=== PATIENT | male | born 1960 | race Caucasian/White ===

== ENCOUNTER 2017-10-29 10:50 | Inpatient (IN) | payer OTHER ==
[2017-10-29 10:57] VITALS: TEMP 98.6
[2017-10-29] MEDS ORDERED: HYDR-3516 PO (11:04)
[2017-10-29 11:05] VITALS: BP 176/110; PULSE 99; RESP 18; O2SAT 95
[2017-10-29] MEDS ORDERED: CELE100C PO (11:05)
[2017-10-29] MEDS ORDERED: HYDROmorphone HCL PF 2 MG/ML VIAL IV PUSH ONE (11:15)
[2017-10-29] MEDS ORDERED: ceFAZolin 2 GM PREMIX 50 ML IV ONE (11:15)
[2017-10-29] MEDS ORDERED: TETANUS/DIPHTHERIA TOXOID ADULT 0.5 ML VIAL IM ONE (11:15)
--- NOTE | 2017-10-29 11:24 | PD ---
HPI Chief Complaint: Injury Time Seen by Provider: 10:54 Travel History International Travel<30 days: No Contact w/Intl Traveler<30days: No Traveled to known affect area: No History of Present Illness HPI This is a 62-year-old male who presents to the emergency department having had the Rashad of a trailer fall onto his foot. He has severe pain in his right great toe, constant, throbbing, associated with some numbness in his toe. The patient does not recall when his last tetanus shot was. He takes hydrocodone at home normally for chronic pain. PFSH Past Medical History Medical other: Yes (back pain ) Past Surgical History Other Surgery: Yes (left calf skin graft ) Social History Alcohol Use: Yes (daily ) Tobacco Use: Yes (2 packs a day ) Substance Use: No Allergies-Medications (Allergen,Severity, Reaction): Coded Allergies: No Known Allergies (Unverified , 10/29/17) Reported Meds & Prescriptions Reported Meds & Active Scripts Active Reported Celebrex (Celecoxib) 100 Mg Cap 100 Mg PO DAILY Hydrocodone-Acetaminophen 5-325 mg Tab 1 Tab PO TID PRN Review of Systems Except as stated in HPI: all other systems reviewed are Neg Physical Exam Narrative GENERAL:Well appearing, no acute distress SKIN: 8 cm laceration extending distal to the right great toe on the dorsal surface all the way around the toe to the plantar surface of the foot with exposed tendon. Avulsion of the right foot toenail with underlying bone exposed HEAD: Atraumatic. Normocephalic. EYES: Pupils equal and round. No injection or drainage. ENT: Moist mucous membranes NECK: Trachea midline. CARDIOVASCULAR: Regular rate and rhythm. No murmur appreciated. Poor perfusion of the right great toe. RESPIRATORY: Clear to auscultation. Breath sounds equal bilaterally. GASTROINTESTINAL: Abdomen soft, non-tender, nondistended. MUSCULOSKELETAL: No obvious deformities. NEUROLOGICAL: Awake and alert. No obvious cranial nerve deficits. PSYCHIATRIC: Appropriate mood and affect; insight and judgment normal. Data Data Last Documented VS Vital Signs Date Time Temp Pulse Resp B/P (MAP) Pulse Ox O2 Delivery O2 Flow Rate FiO2 10/29/17 11:05 99 18 176/110 (132) 95 Room Air 10/29/17 10:57 98.6 Orders Orders Complete Blood Count With Diff (10/29/17 11:01) Comprehensive Metabolic Panel (10/29/17 11:01) Prothrombin Time / Inr (Pt) (10/29/17 11:01) Act Partial Throm Time (Ptt) (10/29/17 11:01) ^ Insert Iv (10/29/17 11:01) Hydromorphone Pf Inj (Dilaudid Pf Inj) (10/29/17 11:15) Foot, Complete (Sed1flq) (10/29/17 ) Cefazolin 2 Gm Premix (Ancef 2 Gm Premix (10/29/17 11:15) Tetanus/Diphtheria Tox Adult (Tetanus/Di (10/29/17 11:15) Consult Podiatry (10/29/17 ) Admit Order (Ed Use Only) (10/29/17 11:43) Comprehensive Metabolic Panel (10/30/17 06:00) Free Thyroxine (T4) (10/30/17 06:00) Hemoglobin (Hgb) A1c (10/30/17 06:00) Magnesium (Mg) (10/30/17 06:00) Phosphorus (Po4) (10/30/17 06:00) Thyroid Stimulating Hormone (10/30/17 06:00) Complete Blood Count With Diff (10/30/17 06:00) Admit To Inpatient (10/29/17 ) Code Status (10/29/17 11:49) Vital Signs (Adult) Q4H (10/29/17 11:49) Activity Bed Rest (10/29/17 11:49) Ballast Inspector / Telemetry .CONTINUOUS (10/29/17 11:49) Intake + Output HOLLI.QSHIFT (10/29/17 11:49) Diet Npo (10/29/17 Lunch) Sodium Chlor 0.9% 1000 Ml Inj (Ns 1000 M (10/29/17 11:49) Sodium Chloride 0.9% Flush (Ns Flush) (10/29/17 12:00) Sodium Chloride 0.9% Flush (Ns Flush) (10/29/17 12:00) Acetaminophen (Tylenol) (10/29/17 12:00) Ondansetron Inj (Zofran Inj) (10/29/17 12:00) Metoclopramide Inj (Reglan Inj) (10/29/17 12:00) Resp Oxygen Robert C Titrat 1-4 L (10/29/17 ) Case Management Consult (10/29/17 11:49) Pharmacologic Contraindication (10/29/17 11:49) Mechanical Contraindication (10/29/17 11:49) Acetaminophen (Tylenol) (10/29/17 12:00) Oxycodone-Acetamin 5-325 Mg (Percocet (10/29/17 12:00) Oxycodone-Acetamin 10-325 Mg (Percocet 1 (10/29/17 12:00) Morphine Inj (Morphine Inj) (10/29/17 12:00) Morphine Inj (Morphine Inj) (10/29/17 12:00) Morphine Inj (Morphine Inj) (10/29/17 12:00) Naloxone Inj (Narcan Inj) (10/29/17 12:00) Docusate Sodium-Senna (Shanita-Colace) (10/29/17 21:00) Magnesium Hydroxide Liq (Milk Of Magnesi (10/29/17 12:00) Sennosides (Senokot) (10/29/17 12:00) Bisacodyl Supp (Dulcolax Supp) (10/29/17 12:00) Lactulose Liq (Lactulose Liq) (10/29/17 12:00) Inpatient Certification (10/29/17 ) Nicotine 21 Mg Patch.24 Hr (Habitrol 21 (10/29/17 12:00) Nicotine 21 Mg Patch.24 Hr (Habitrol 21 (10/29/17 12:00) Remove Old Patch (10/30/17 09:00) Acetaminophen 1000 Mg/100 Ml (Ofirmev 10 (10/29/17 12:21) Hydromorphone Pf Inj (Dilaudid Pf Inj) (10/29/17 12:21) Lidocaine 1% Inj (50 Ml) (Xylocaine 1% I (10/29/17 12:24) Vancomycin Inj (Vancomycin Inj) (10/29/17 12:25) Labs Laboratory Tests Test 10/29/17 11:15 White Blood Count 8.6 TH/MM3 Red Blood Count 4.92 MIL/MM3 Hemoglobin 16.0 GM/DL Hematocrit 46.3 % Mean Corpuscular Volume 93.9 FL Mean Corpuscular Hemoglobin 32.5 PG Mean Corpuscular Hemoglobin Concent 34.6 % Red Cell Distribution Width 13.8 % Platelet Count 214 TH/MM3 Mean Platelet Volume 8.3 FL Neutrophils (%) (Auto) 66.3 % Lymphocytes (%) (Auto) 22.9 % Monocytes (%) (Auto) 8.4 % Eosinophils (%) (Auto) 1.8 % Basophils (%) (Auto) 0.6 % Neutrophils # (Auto) 5.7 TH/MM3 Lymphocytes # (Auto) 2.0 TH/MM3 Monocytes # (Auto) 0.7 TH/MM3 Eosinophils # (Auto) 0.2 TH/MM3 Basophils # (Auto) 0.1 TH/MM3 CBC Comment DIFF FINAL Differential Comment Prothrombin Time 10.0 SEC Prothromb Time International Ratio 1.0 RATIO Activated Partial Thromboplast Time 23.6 SEC Blood Urea Nitrogen 18 MG/DL Creatinine 1.39 MG/DL Random Glucose 95 MG/DL Total Protein 7.6 GM/DL Albumin 3.7 GM/DL Calcium Level 9.0 MG/DL Alkaline Phosphatase 75 U/L Aspartate Amino Transf (AST/SGOT) 36 U/L Alanine Aminotransferase (ALT/SGPT) 23 U/L Total Bilirubin 0.6 MG/DL Sodium Level 138 MEQ/L Potassium Level 5.5 MEQ/L Chloride Level 105 MEQ/L Carbon Dioxide Level 24.6 MEQ/L Anion Gap 8 MEQ/L Estimat Glomerular Filtration Rate 52 ML/MIN MDM Medical Decision Making Medical Screen Exam Complete: Yes Emergency Medical Condition: Yes Interpretation(s) Afebrile, mild tachycardia, hypertensive No leukocytosis Hyperkalemia likely in the setting of hemolysis Mild renal insufficiency Last 24 hours Impressions Foot X-Ray 10/29/17 0000 Signed Impressions: CONCLUSION: Severely comminuted fracture distal phalanx great toe with toenail avulsion. Mildly displaced fractures proximal phalanx second toe, distal third metatarsal and medial aspect of first metatarsal head. Differential Diagnosis Laceration, open fracture, crush injury, vascular injury Narrative Course This is a 57-year-old male who presents to the emergency department having had a heavy trailer rashad fall on his foot sustaining a crush injury to the right great toe and forefoot. He has a open fracture of the distal phalanx of the great toe with an avulsion of his toenail as well as displaced fractures to the proximal phalanx of the second toe, distal third metatarsal and medial aspect of the first metatarsal head. There is evidence of exposed tendon in the wound. Patient was given a dose of Ancef, tetanus was updated and I spoke to podiatry regarding the patient. Patient was taken to the operating room for surgical repair. Physician Communication Physician Communication Discussed with Dr. Perrin Diagnosis Primary Impression: Open fracture Admitting Information Admitting Physician Requests: Observation Peggy Yu MD October 29, 2017 11:24
[2017-10-29 11:32] LABS: AUTOMATED NEUTROPHIL # 5.7 TH/MM3 (1.8-7.7); BASOPHIL # 0.1 TH/MM3 (0-0.2); BASOPHIL % 0.6 % (0.0-2.0); EOSINOPHIL # 0.2 TH/MM3 (0-0.4); EOSINOPHIL % 1.8 % (0.0-4.0); HEMATOCRIT 46.3 % (39.0-51.0); LYMPH % 22.9 % (9.0-44.0); MEAN CELL VOLUME 93.9 FL (80.0-100.0); MEAN CORPUSCULAR HEMOGLOBIN 32.5 PG (27.0-34.0); MEAN CORPUSCULAR HGB CONC 34.6 % (32.0-36.0); MEAN PLATELET VOLUME 8.3 FL (7.0-11.0); MONO % 8.4 % (0.0-8.0); MONOCYTE # 0.7 TH/MM3 (0-0.9); NEUT % 66.3 % (16.0-70.0); PLATELET COUNT 214 TH/MM3 (150-450); RED BLOOD COUNT 4.92 MIL/MM3 (4.50-5.90); RED CELL DISTRIBUTION WIDTH 13.8 % (11.6-17.2); WHITE BLOOD COUNT 8.6 TH/MM3 (4.0-11.0)
--- NOTE | 2017-10-29 11:51 | RADRPT ---
EXAM DATE: 10/29/2017 11:38 AM EDT AGE/SEX: 57 years / Male INDICATIONS: Pain, crush injury right foot. Trailer fell on foot CLINICAL DATA: This is the patient's initial encounter. Patient reports that signs and symptoms have been present for 1 day and indicates a pain score of 10/10. MEDICAL/SURGICAL HISTORY: None. None. COMPARISON: No prior [facility] exams available for comparison. FINDINGS: There is a severely comminuted fracture of the distal phalanx of the great toe with probable avulsion of the toenail. Air is present in the soft tissues as well. There is also a mildly displaced oblique ly oriented fracture through the third metatarsal neck. There is also a nondisplaced fracture through the distal portion proximal phalanx of the second toe. Probable small avulsion fracture at the media l aspect of the first metatarsal. CONCLUSION: Severely comminuted fracture distal phalanx great toe with toenail avulsion. Mildly displaced fractures proximal phalanx second toe, distal third metatarsal and medial aspect of first metatarsal head. Electronically signed by: Mayco Anand MD 10/29/2017 11:49 AM EDT
[2017-10-29 11:55] LABS: ALKALINE PHOSPHATASE 75 U/L (45-117); ALT (GPT) 23 U/L (12-78); TOTAL BILIRUBIN ADULT 0.6 MG/DL (0.2-1.0); TOTAL PROTEIN 7.6 GM/DL (6.4-8.2)
[2017-10-29] MEDS ORDERED: NICOTINE 21 MG/24 HR PATCH T-DERMAL SCH (12:00)
[2017-10-29] MEDS ORDERED: LACTATED RINGER'S 1000 ML INJ 1,000 ML IV ONE (12:00)
[2017-10-29] MEDS ORDERED: MORPHINE SULFATE 4 MG/ML INJ IV PUSH PRN ×2 (12:00)
[2017-10-29] MEDS ORDERED: ceFAZolin INJ 1,000 MG VIAL IV ONE (12:00)
[2017-10-29] MEDS ORDERED: NICOTINE 21 MG/24 HR PATCH T-DERMAL ONE (12:00)
[2017-10-29] MEDS ORDERED: ONDANSETRON HCL 4 MG/2 ML VIAL IV PUSH ONE (12:00)
[2017-10-29] MEDS ORDERED: ACETAMINOPHEN 325 MG TAB PO PRN ×2 (12:00)
[2017-10-29] MEDS ORDERED: NALOXONE HCL 0.4 MG/ML AMP IV PUSH PRN (12:00)
[2017-10-29] MEDS ORDERED: PHENYLEPH/NS 1000 MCG/10 ML SYR IV ONE (12:00)
[2017-10-29] MEDS ORDERED: ONDANSETRON ODT 4 MG TAB PO PRN (12:00)
[2017-10-29] MEDS ORDERED: LIDOCAINE HCL 1% PF 5 ML SYRINGE OTHER ONE (12:00)
[2017-10-29] MEDS ORDERED: BISACODYL 10 MG SUPP RECTAL PRN (12:00)
[2017-10-29] MEDS ORDERED: DEXAMETHASONE SOD PHOS 4 MG/ML VIAL IV ONE (12:00)
[2017-10-29] MEDS ORDERED: oxyCODONE/ACETAMINOPHEN 5 MG/325 MG TAB PO PRN (12:00)
[2017-10-29] MEDS ORDERED: SENNOSIDES 8.6 MG TAB PO PRN (12:00)
[2017-10-29] MEDS ORDERED: MAGNESIUM HYDROXIDE SUSP 30 ML CUP PO PRN (12:00)
[2017-10-29] MEDS ORDERED: SODIUM CHLORIDE 0.9% FLUSH 10 ML FLUSH IV FLUSH PRN ×2 (12:00→16:15)
[2017-10-29] MEDS ORDERED: LACTULOSE SYRUP 20 GM/30 ML CUP PO PRN (12:00)
[2017-10-29] MEDS ORDERED: PROPOFOL 200 MG/20 ML AMP IV ONE (12:00)
[2017-10-29] MEDS ORDERED: METOCLOPRAMIDE HCL 10 MG/2 ML VIAL IV PUSH PRN (12:00)
[2017-10-29 12:02] LABS: ALBUMIN 3.7 GM/DL (3.4-5.0); AST (GOT) 36 U/L (15-37); BICARBONATE 24.6 MEQ/L (21.0-32.0); BLOOD UREA NITROGEN 18 MG/DL (7-18); CHLORIDE 105 MEQ/L (98-107); CREATININE 1.39 MG/DL (0.60-1.30); GLOMERULAR FILTRATION RATE 52 ML/MIN (>89); GLUCOSE,RANDOM 95 MG/DL (74-106); SODIUM (NA) 138 MEQ/L (136-145)
[2017-10-29] MEDS ORDERED: HYDROmorphone HCL PF 2 MG/ML VIAL ONE (12:21)
[2017-10-29] MEDS ORDERED: ACETAMINOPHEN 1000 MG/100 ML 100 ML IV ONE (12:21)
[2017-10-29] MEDS ORDERED: LIDOCAINE HCL 1% 50 ML VIAL ONE (12:24)
[2017-10-29] MEDS ORDERED: VANCOMYCIN HCL 1000 MG VIAL ONE (12:25)
[2017-10-29] MEDS ORDERED: BUPIVACAINE HCL PF 0.5% 30 ML VIAL ONE (12:33)
[2017-10-29 12:37] VITALS: BP 170/113
[2017-10-29] MEDS ORDERED: GENTAMICIN SULFATE 80 MG/2 ML VIAL ONE ×2 (12:58→13:46)
--- NOTE | 2017-10-29 13:05 | PD.CONS ---
History of Present Illness Service Foot and ankle surgery/podiatry Consult Requested By Reason for Consult Right foot open fracture with laceration Primary Care Physician No Primary Care Physician Diagnoses: History of Present Illness Foot and ankle surgery/podiatry consulted for this 62-year-old male who presented to the emergency department after having the marisela of his trailer fell on his foot. He reports severe pain to the right great toe as well as some numbness and tingling. Patient received tetanus prophylaxis and ED reports taking hydrocodone for chronic pain. Reports smoking. He is concerned as he has a trip planned to [place] tomorrow and would like to leave for his trip as planned and scheduled. Review of Systems Respiratory: DENIES: Cough, Shortness of breath Cardiovascular: DENIES: Chest pain, Palpitations Psychiatric: DENIES: Anxiety, Confusion Past Family Social History Allergies: Coded Allergies: No Known Allergies (Unverified , 10/29/17) Active Ordered Medications Current Medications Medications (Trade) Dose Ordered Sig/Asaf Route Start Time Stop Time Status Last Admin Sodium Chloride 1,000 ml @ 100 mls/hr Q10H IV 10/29/17 11:49 (NS Flush) 2 ml UNSCH PRN IV FLUSH 10/29/17 12:00 UNV (NS Flush) 2 ml BID IV FLUSH 10/29/17 12:00 UNV (Tylenol) 650 mg Q4H PRN PO 10/29/17 12:00 (Zofran Inj) 4 mg Q6H PRN IVP 10/29/17 12:00 UNV (Reglan Inj) 5 mg Q6H PRN IV PUSH 10/29/17 12:00 UNV (Tylenol) 650 mg Q6H PRN PO 10/29/17 12:00 (Percocet 5-325 Mg) 1 tab Q6H PRN PO 10/29/17 12:00 UNV (Percocet 10-325 Mg) 1 tab Q6H PRN PO 10/29/17 12:00 UNV (Morphine Inj) 2 mg Q3H PRN IV PUSH 10/29/17 12:00 UNV (Morphine Inj) 4 mg Q3H PRN IV PUSH 10/29/17 12:00 UNV (Morphine Inj) 4 mg Q3H PRN IV PUSH 10/29/17 12:00 UNV (Narcan Inj) 0.4 mg UNSCH PRN IV PUSH 10/29/17 12:00 UNV (Shanita-Colace) 1 tab BID PO 10/29/17 21:00 (Milk Of Magnesia Liq) 30 ml Q12H PRN PO 10/29/17 12:00 (Senokot) 17.2 mg Q12H PRN PO 10/29/17 12:00 UNV (Dulcolax Supp) 10 mg DAILY PRN RECTAL 10/29/17 12:00 (Lactulose Liq) 30 ml DAILY PRN PO 10/29/17 12:00 (Habitrol 21 Mg Patch.24 Hr) 1 patch ONCE ONCE T-DERMAL 10/29/17 12:00 10/29/17 12:01 UNV (Habitrol 21 Mg Patch.24 Hr) 1 patch DAILY T-DERMAL 10/29/17 12:00 UNV Miscellaneous Information 1 DAILY T-DERMAL 10/30/17 09:00 UNV Social History Reports smoking Physical Exam Vital Signs Vital Signs Date Time Temp Pulse Resp B/P (MAP) Pulse Ox O2 Delivery O2 Flow Rate FiO2 10/29/17 12:37 95 16 170/113 (132) 96 10/29/17 11:05 99 18 176/110 (132) 95 Room Air 10/29/17 10:57 98.6 Physical Exam GENERAL: This is a well-nourished, well-developed patient, in no apparent distress. SKIN: HEAD: Atraumatic. EYES: Pupils equal round and reactive. ENT: Airway patent. NECK: Trachea midline. RESPIRATORY: Nonlabored breathing. MUSCULOSKELETAL:. Negative Homans sign bilaterally. NEUROLOGICAL: Awake and alert. Normal speech. Lower extremity physical exam: Vascular: Dorsalis pedis [2/4], posterior tibial [2/4]. Capillary refill time within normal limits to digits [X5] bilateral foot. Edema [present/not present ] [right/left] [foot/ankle] Neuro: Gross sensation intact to bilateral lower extremity. Pinpoint sensation [decrease/increase]. No hyperalgesia noted to bilateral lower extremity Dermatology: Normal temperature and turgor to bilateral lower extremity. Musculoskeletal: Tender to palpation to [location]. Laboratory Laboratory Tests Test 10/29/17 11:15 White Blood Count 8.6 Red Blood Count 4.92 Hemoglobin 16.0 Hematocrit 46.3 Mean Corpuscular Volume 93.9 Mean Corpuscular Hemoglobin 32.5 Mean Corpuscular Hemoglobin Concent 34.6 Red Cell Distribution Width 13.8 Platelet Count 214 Mean Platelet Volume 8.3 Neutrophils (%) (Auto) 66.3 Lymphocytes (%) (Auto) 22.9 Monocytes (%) (Auto) 8.4 Eosinophils (%) (Auto) 1.8 Basophils (%) (Auto) 0.6 Neutrophils # (Auto) 5.7 Lymphocytes # (Auto) 2.0 Monocytes # (Auto) 0.7 Eosinophils # (Auto) 0.2 Basophils # (Auto) 0.1 CBC Comment DIFF FINAL Differential Comment Prothrombin Time 10.0 Prothromb Time International Ratio 1.0 Activated Partial Thromboplast Time 23.6 Blood Urea Nitrogen 18 Creatinine 1.39 Random Glucose 95 Total Protein 7.6 Albumin 3.7 Calcium Level 9.0 Alkaline Phosphatase 75 Aspartate Amino Transf (AST/SGOT) 36 Alanine Aminotransferase (ALT/SGPT) 23 Total Bilirubin 0.6 Sodium Level 138 Potassium Level 5.5 Chloride Level 105 Carbon Dioxide Level 24.6 Anion Gap 8 Estimat Glomerular Filtration Rate 52 Result Diagram: 10/29/17 1115 10/29/17 1115 Imaging Last Impressions Foot X-Ray 10/29/17 0000 Signed Impressions: CONCLUSION: Severely comminuted fracture distal phalanx great toe with toenail avulsion. Mildly displaced fractures proximal phalanx second toe, distal third metatarsal and medial aspect of first metatarsal head. Assessment and Plan Assessment and Plan 57-year-old male with right foot open distal phalanx comminuted fracture with laceration Patient examined and evaluated with all questions answered To OR for right foot debridement and irrigation with possible ORIF distal phalanx fracture Consent signed Discussed procedure in great detail with patient, he is aware of all risks alternatives benefits and complications Discussed smoking cessation with patient Patient would like to go home tomorrow as he wants to catch a flight to [place] Nichelle Perrin DPM October 29, 2017 13:05
[2017-10-29] MEDS ORDERED: POVIDONE IODINE 5% (ANTISEPSIS KIT) 4 APPLICATIONS EACH NARE PRN (13:15)
[2017-10-29] MEDS ORDERED: LACTATED RINGER'S 1000 ML IV PRN (13:15)
[2017-10-29] MEDS ORDERED: INSULIN HUMAN REGULAR 1,000 UNITS/10 ML VIAL SQ PRN (13:15)
[2017-10-29] MEDS ORDERED: CHLORHEXIDINE GLUCONATE 2 % 1 PACK (2 CLOTHS) TOPICAL PRN (13:15)
[2017-10-29] MEDS ORDERED: SODIUM CHLORID 0.9% 500 ML IV PRN (13:15)
[2017-10-29] MEDS ORDERED: METOPROLOL TARTRATE 25 MG TAB PO PRN (13:15)
--- NOTE | 2017-10-29 14:54 | RADRPT ---
EXAM DATE: 10/29/2017 2:20 PM EDT AGE/SEX: 57 years / Male INDICATIONS: Evaluate for fracture. CLINICAL DATA: This is the patient's subsequent encounter. Patient reports that signs and symptoms h ave been present for 1 day and indicates a pain score of Nonresponsive. MEDICAL/SURGICAL HISTORY: Non-responsive. Non-responsive. [place] [facility] [id number] 10/29/2017. . FINDINGS: Single fluoroscopic image of the right foot again demonstrates a severely comminuted fractures of the distal first phalanx and mildly displaced fracture of the third metatarsal. Remaining visualized oss eous structures appear intact. CONCLUSION: 1. Fluoroscopic evaluation of the right foot, as above. Electronically signed by: Wali Marroquin MD 10/29/2017 2:53 PM EDT
[2017-10-29] MEDS ORDERED: Post-op Orders (for Pharmacy) XX ONE (15:07)
[2017-10-29] MEDS ORDERED: DO NOT ADM ANY ANTICOAGULANT DRUGS PRN (15:07)
[2017-10-29] MEDS ORDERED: diphenhydrAMINE HCL 25 MG CAP PO PRN (15:15)
[2017-10-29] MEDS ORDERED: MIDAZOLAM HCL 2 MG/2 ML VIAL ONE (15:15)
--- NOTE | 2017-10-29 15:19 | HHI.PR ---
Immediate Post Op Note Procedure Date: October 29, 2017 Pre Op Diagnosis: Open fracture right foot, distal phalanx of hallux Post Op Diagnosis: Open fracture right foot, distal phalanx of hallux Surgeon: Nichelle Perrin Epic Manager(s): None Procedure: Right foot open fracture debridement and irrigation with laceration repair Findings: None Complications: None Specimen(s) removed: None Estimated blood loss: 20cc Anesthesia: General Drains: None Patient to: PACU Patient Condition: Good (NVS intact to right foot) Nichelle Perrin DPM October 29, 2017 15:19
[2017-10-29] MEDS ORDERED: MEPERIDINE HCL 50 MG/ML VIAL ONE (15:30)
--- NOTE | 2017-10-29 16:14 | HHI.HP ---
[facility] No Primary Care Physician Admission Diagnosis complex foot laceration Diagnoses: Chief Complaint: Complex right foot injury Travel History International Travel<30 Days: No Contact w/Intl Traveler <30 Da: No Traveled to Known Affected Are: No History of Present Illness Patient is a 62-year-old male presented emergency department after having the marisela of a giant trailer fall onto his right foot. He has had severe pain in the right great toe, constant, throbbing, has some numbness in his toe. He is not able to move his toe very well. Patient does not recall when he had his last tetanus therefore has been given 1 emergency department. He takes hydrocodone as well as Celebrex at home for chronic pain he chronically lives in [place] he states Patient has been taken to the operating room by podiatry. He has an Open fracture right foot, distal phalanx of hallux Patient underwent right foot open fracture debridement and irrigation with laceration repair Review of Systems Constitutional: DENIES: Diaphoretic episodes, Fatigue, Fever, Weight gain, Weight loss, Chills, Dizziness, Change in appetite, Night Sweats Endocrine: DENIES: Heat/cold intolerance, Polydipsia, Polyuria, Polyphagia Eyes: DENIES: Blurred vision, Diplopia, Eye inflammation, Eye pain, Vision loss , Photosensitivity, Double Vision Ears, nose, mouth, throat: DENIES: Tinnitus, Hearing loss, Vertigo, Nasal discharge, Oral lesions, Throat pain, Hoarseness, Ear Pain, Running Nose, Epistaxis, Sinus Pain, Toothache, Odynophagia Respiratory: DENIES: Apneas, Cough, Snoring, Wheezing, Hemoptysis, Sputum production, Shortness of breath Cardiovascular: DENIES: Chest pain, Palpitations, Syncope, Dyspnea on Exertion , PND, Lower Extremity Edema, Orthopnea, Claudication Gastrointestinal: DENIES: Abdominal pain, Black stools, Bloody stools, Constipation, Diarrhea, Nausea, Vomiting, Difficulty Swallowing, Anorexia Genitourinary: DENIES: Sexual dysfunction, Urinary frequency, Urinary incontinence, Urgency, Hematuria, Dysuria, Nocturia, Penile Discharge, Testicular Pain, Testicular Swelling Musculoskeletal: COMPLAINS OF: Joint pain, Back pain, Neck pain, DENIES: Muscle aches, Stiffness, Joint Swelling Integumentary: DENIES: Abnormal pigmentation, Nail changes, Pruritus, Rash Hematologic/lymphatic: DENIES: Bruising, Lymphadenopathy Immunologic/allergic: DENIES: Eczema, Urticaria Neurologic: COMPLAINS OF: Abnormal gait, DENIES: Headache, Localized weakness, Paresthesias, Seizures, Speech Problems, Tremor, Poor Balance Psychiatric: DENIES: Anxiety, Confusion, Mood changes, Depression, Hallucinations, Agitation, Suicidal Ideation, Homicidal Ideation, Delusions Except as stated in HPI: all other systems reviewed are Neg Past Family Social History Past Medical History Left leg surgery Hemorrhoidectomy Chronic back pain Left calf skin graft Past Surgical History Left calf skin graft Left leg surgery Reported Medications Reported Meds & Active Scripts Active Reported Celebrex (Celecoxib) 100 Mg Cap 100 Mg PO DAILY Hydrocodone-Acetaminophen 5-325 mg Tab 1 Tab PO TID PRN Allergies: Coded Allergies: No Known Allergies (Unverified , 10/29/17) Active Ordered Medications Current Medications Hydromorphone HCl (Dilaudid Pf Inj) 0.5 mg ONCE ONCE IV PUSH Last administered on 10/29/17at 11:18; Start 10/29/17 at 11:15; Stop 10/29/17 at 11:16 ; Status DC Cefazolin Sodium/ Dextrose 50 ml @ 100 mls/hr ONCE ONCE IV Last administered on 10/29/17at 11:17; Start 10/29/17 at 11:15; Stop 10/29/17 at 11:44; Status DC Tetanus/ Diphtheria Toxoids (Tetanus/ Diphtheria Tox Adult) 0.5 ml ONCE ONCE IM Last administered on 10/29/17at 11:19; Start 10/29/17 at 11:15; Stop 10/29/17 at 11:16; Status DC Sodium Chloride 1,000 ml @ 100 mls/hr Q10H IV ; Start 10/29/17 at 11:49 Sodium Chloride (NS Flush) 2 ml UNSCH PRN IV FLUSH FLUSH AFTER USING IV ACCESS ; Start 10/29/17 at 12:00 Sodium Chloride (NS Flush) 2 ml BID IV FLUSH ; Start 10/29/17 at 12:00 Acetaminophen (Tylenol) 650 mg Q4H PRN PO TEMP > 100.4; Start 10/29/17 at 12:00 Ondansetron HCl (Zofran Odt) 4 mg Q6H PRN PO NAUSEA OR VOMITING; Start at 12:00 Metoclopramide HCl (Reglan Inj) 5 mg Q6H PRN IV PUSH NAUSEA OR VOMITING; Start 10/29/17 at 12:00 Acetaminophen (Tylenol) 650 mg Q6H PRN PO PAIN SCALE 1 TO 2; Start 10/29/17 at 12:00 Oxycodone/ Acetaminophen (Percocet 5-325 Mg) 1 tab Q6H PRN PO PAIN SCALE 3 TO 5; Start 10/29/17 at 12:00 Oxycodone/ Acetaminophen (Percocet 10-325 Mg) 1 tab Q6H PRN PO PAIN SCALE 6 TO 10; Start 10/29/17 at 12:00 Morphine Sulfate (Morphine Inj) 2 mg Q3H PRN IV PUSH Pain 3-5; if unable to take PO; Start 10/29/17 at 12:00 Morphine Sulfate (Morphine Inj) 4 mg Q3H PRN IV PUSH Pain 6-10;if unable to take PO; Start 10/29/17 at 12:00 Morphine Sulfate (Morphine Inj) 4 mg Q3H PRN IV PUSH BREAKTHROUGH PAIN; Start 10/29/17 at 12:00 Naloxone HCl (Narcan Inj) 0.4 mg UNSCH PRN IV PUSH SEE LABEL COMMENTS; Start at 12:00 Senna/Docusate Sodium (Shanita-Colace) 1 tab BID PO ; Start 10/29/17 at 21:00 Magnesium Hydroxide (Milk Of Magnesia Liq) 30 ml Q12H PRN PO Mild constipation ; Start 10/29/17 at 12:00 Sennosides (Senokot) 17.2 mg Q12H PRN PO Moderate constipation; Start 10/29/17 at 12:00 Bisacodyl (Dulcolax Supp) 10 mg DAILY PRN RECTAL SEVERE CONSITIPATION; Start at 12:00 Lactulose (Lactulose Liq) 30 ml DAILY PRN PO SEVERE CONSITIPATION; Start at 12:00 Nicotine (Habitrol 21 Mg Patch.24 Hr) 1 patch ONCE ONCE T-DERMAL ; Start at 12:00; Stop 10/29/17 at 13:04; Status DC Nicotine (Habitrol 21 Mg Patch.24 Hr) 1 patch DAILY T-DERMAL ; Start 10/29/17 at 12:00; Stop 10/29/17 at 13:05; Status DC Miscellaneous Information 1 DAILY T-DERMAL ; Start 10/30/17 at 09:00 Acetaminophen 100 ml @ As Directed STK-MED ONCE IV ; Start 10/29/17 at 12:21; Stop 10/29/17 at 12:22; Status DC Hydromorphone HCl (Dilaudid Pf Inj) 2 mg STK-MED ONCE .ROUTE ; Start 10/29/17 at 12:21; Stop 10/29/17 at 12:22; Status DC Lidocaine HCl (Xylocaine 1% Inj (50 ml)) 50 ml STK-MED ONCE .ROUTE ; Start 10/29 at 12:24; Stop 10/29/17 at 12:25; Status DC Vancomycin HCl (Vancomycin Inj) 1,000 mg STK-MED ONCE .ROUTE ; Start 10/29/17 at 12:25; Stop 10/29/17 at 12:26; Status DC Bupivacaine HCl (Marcaine Pf 0.5% Inj) 30 ml STK-MED ONCE .ROUTE ; Start at 12:33; Stop 10/29/17 at 12:34; Status DC Gentamicin Sulfate (Gentamicin Inj) 240 mg STK-MED ONCE .ROUTE Last administered on 10/29/17at 13:42; Start 10/29/17 at 12:58; Stop 10/29/17 at 12:59 ; Status DC Nicotine (Habitrol 21 Mg Patch.24 Hr) 1 patch DAILY T-DERMAL ; Start 10/30/17 at 09:00 Lactated Ringer's 1,000 ml @ 30 mls/hr Q24H PRN IV SEE LABEL COMMENTS; Start at 13:15; Stop 11/01/17 at 13:14 Sodium Chloride 500 ml @ 30 mls/hr [id number] PRN IV SEE LABEL COMMENTS; Start at 13:15; Stop 11/01/17 at 13:14 Metoprolol Tartrate (Lopressor) 25 mg SPARERIBS TRIMMER PRN PO SEE LABEL COMMENTS; Start 10/29/17 at 13:15; Stop 11/01/17 at 13:14 Povidone Iodine (Betadine 5% Antisepsis Kit) 1 applic SPARERIBS TRIMMER PRN EACH NARE SEE LABEL COMMENTS; Start 10/29/17 at 13:15; Stop 11/01/17 at 13:14 Chlorhexidine Gluconate (Chlorhexidine 2% Cloth) 3 pack SPARERIBS TRIMMER PRN TOPICAL SEE LABEL COMMENTS; Start 10/29/17 at 13:15; Stop 11/01/17 at 13:14 Insulin Human Regular (NovoLIN R INJ) See Protocol Table ... SPARERIBS TRIMMER PRN SQ SEE PROTOCOL TABLE; Start 10/29/17 at 13:15; Stop 11/01/17 at 13:14 Gentamicin Sulfate (Gentamicin Inj) 240 mg STK-MED ONCE .ROUTE Last administered on 10/29/17at 13:42; Start 10/29/17 at 13:46; Stop 10/29/17 at 13:47 ; Status DC Miscellaneous Information ([facility] [place]acy[place] STAT ONCE XX ; Start 10/29/17 at 15:07; Stop 10/29/17 at 15:45; Status DC Enoxaparin Sodium (Lovenox Inj) 30 mg Q24H SQ ; Start 10/30/17 at 03:00 Cefazolin Sodium 1000 mg/Sodium Chloride 100 ml @ 200 mls/hr Q8H IV ; Start at 20:00 Clindamycin/ Sodium Chloride 50 ml @ 100 mls/hr Q8H IV ; Start 10/29/17 at 17: 00 Gentamicin Sulfate 80 mg/ Sodium Chloride 102 ml @ 204 mls/hr Q8H IV ; Start at 22:00 Diphenhydramine HCl (Benadryl) 25 mg Q6H PRN PO ITCHING; Start 10/29/17 at 15: 15 Midazolam HCl (Versed Inj) 2 mg STK-MED ONCE .ROUTE ; Start 10/29/17 at 15:15; Stop 10/29/17 at 15:16; Status DC Meperidine HCl (Demerol Inj) 50 mg STK-MED ONCE .ROUTE ; Start 10/29/17 at 15:30 ; Stop 10/29/17 at 15:31; Status DC Miscellaneous Information ([facility] [place] Nursing Information) ALL NURSING DEPARTME... UNSCH PRN .XX SEE LABEL COMMENTS; Start 10/29/17 at 15:07; Stop 10/30/17 at 15: 06 Family History Tobacco abuse Social History Tobacco abuse 2 packs per day 6 pack of beer daily Denies any illicits other than his prescribed prescriptions of hydrocodone acetaminophen and celebrate Physical Exam Vital Signs Vital Signs Date Time Temp Pulse Resp B/P (MAP) Pulse Ox O2 Delivery O2 Flow Rate FiO2 10/29/17 15:45 72 14 122/68 (86) 98 Nasal Cannula 2 10/29/17 15:30 83 19 136/80 (98) 98 Nasal Cannula 2 10/29/17 15:15 87 13 169/84 (112) 98 Nasal Cannula 2 10/29/17 15:07 97.7 79 10 179/101 (127) 100 Simple Mask 6 10/29/17 12:37 95 16 170/113 (132) 96 10/29/17 11:05 99 18 176/110 (132) 95 Room Air 10/29/17 10:57 98.6 Physical Exam GENERAL: This is a well-nourished, well-developed patient, in no apparent distress. SKIN: No rashes, ecchymoses or lesions. Cool and dry. Few tattoos HEAD: Atraumatic. Normocephalic. No temporal or scalp tenderness. EYES: Pupils equal round and reactive. Extraocular motions intact. No scleral icterus. No injection or drainage. ENT: Nose without bleeding, purulent drainage or septal hematoma. Throat without erythema, tonsillar hypertrophy or exudate. Uvula midline. Airway patent. NECK: Trachea midline. No JVD or lymphadenopathy. Supple, nontender, no meningeal signs. CARDIOVASCULAR: Regular rate and rhythm without murmurs, gallops, or rubs. RESPIRATORY: Clear to auscultation. Breath sounds equal bilaterally. No wheezes , rales, or rhonchi. GASTROINTESTINAL: Abdomen soft, non-tender, nondistended. No hepato-splenomegaly , or palpable masses. No guarding. MUSCULOSKELETAL: Extremities without clubbing, cyanosis, or edema. No joint tenderness, effusion, or edema noted. No calf tenderness. Negative Homans sign bilaterally. Right lower extremity dressed in splint and Nikita wrap NEUROLOGICAL: Awake and alert. Cranial nerves II through XII intact. Motor and sensory grossly within normal limits. Five out of 5 muscle strength in all muscle groups. Normal speech. Insight and judgment is good Mood and behavior is appropriate Laboratory Laboratory Tests Test 10/29/17 11:15 White Blood Count 8.6 Red Blood Count 4.92 Hemoglobin 16.0 Hematocrit 46.3 Mean Corpuscular Volume 93.9 Mean Corpuscular Hemoglobin 32.5 Mean Corpuscular Hemoglobin Concent 34.6 Red Cell Distribution Width 13.8 Platelet Count 214 Mean Platelet Volume 8.3 Neutrophils (%) (Auto) 66.3 Lymphocytes (%) (Auto) 22.9 Monocytes (%) (Auto) 8.4 Eosinophils (%) (Auto) 1.8 Basophils (%) (Auto) 0.6 Neutrophils # (Auto) 5.7 Lymphocytes # (Auto) 2.0 Monocytes # (Auto) 0.7 Eosinophils # (Auto) 0.2 Basophils # (Auto) 0.1 CBC Comment DIFF FINAL Differential Comment Prothrombin Time 10.0 Prothromb Time International Ratio 1.0 Activated Partial Thromboplast Time 23.6 Blood Urea Nitrogen 18 Creatinine 1.39 Random Glucose 95 Total Protein 7.6 Albumin 3.7 Calcium Level 9.0 Alkaline Phosphatase 75 Aspartate Amino Transf (AST/SGOT) 36 Alanine Aminotransferase (ALT/SGPT) 23 Total Bilirubin 0.6 Sodium Level 138 Potassium Level 5.5 Chloride Level 105 Carbon Dioxide Level 24.6 Anion Gap 8 Estimat Glomerular Filtration Rate 52 Result Diagram: 10/29/17 1115 10/29/17 1115 Imaging Last Impressions Foot X-Ray 10/29/17 0000 Signed Impressions: CONCLUSION: 1. Fluoroscopic evaluation of the right foot, as above. Caprini VTE Risk Assessment Caprini VTE Risk Assessment: Mod/High Risk (score >= 2) Caprini Risk Assessment Model Point Value = 1 Point Value = 2 Point Value = 3 Point Value = 5 Age 41-60 Minor surgery BMI > 25 kg/m2 Swollen legs Varicose veins or History of unexplained or recurrent spontaneous Oral contraceptives or hormone replacement Sepsis (< 1 month) Serious lung disease, including pneumonia (< 1 month) Abnormal pulmonary function Acute myocardial infarction Congestive heart failure (< 1 month) History of inflammatory bowel disease Medical patient at bed rest Age 61-74 Arthroscopic surgery Major open surgery (> 45 min) Laparoscopic surgery (> 45 min) Malignancy Confined to bed (> 72 hours) Immobilizing plaster cast Central venous access Age >= 75 History of VTE Family history of VTE Factor V Leiden Prothrombin [id number] Lupus anticoagulant Anticardiolipin antibodies Elevated serum homocysteine Heparin-induced thrombocytopenia Other congenital or acquired thrombophilia Stroke (< 1 month) Elective arthroplasty Hip, pelvis, or leg fracture Acute spinal cord injury (< 1 month) Prophylaxis Regimen Total Risk Factor Score Risk Level Prophylaxis Regimen 0-1 Low Early ambulation 2 Moderate Order ONE of the following: *Sequential Compression Device (SCD) *Heparin 5000 units SQ BID 3-4 Higher Order ONE of the following medications: *Heparin 5000 units SQ TID *Enoxaparin/Lovenox 40 mg SQ daily (WT < 150 kg, CrCl > 30 mL/min) *Enoxaparin/Lovenox 30 mg SQ daily (WT < 150 kg, CrCl > 10-29 mL/min) *Enoxaparin/Lovenox 30 mg SQ BID (WT < 150 kg, CrCl > 30 mL/min) AND/OR *Sequential Compression Device (SCD) 5 or more Highest Order ONE of the following medications: *Heparin 5000 units SQ TID (Preferred with Epidurals) *Enoxaparin/Lovenox 40 mg SQ daily (WT < 150 kg, CrCl > 30 mL/min) *Enoxaparin/Lovenox 30 mg SQ daily (WT < 150 kg, CrCl > 10-29 mL/min) *Enoxaparin/Lovenox 30 mg SQ BID (WT < 150 kg, CrCl > 30 mL/min) AND *Sequential Compression Device (SCD) Assessment and Plan Assessment and Plan Laceration and open fracture and crush injury of the right great toe status post marisela falling on Status post surgery Open fracture right foot, distal phalanx of hallux Procedure: Right foot open fracture debridement and irrigation with laceration repair Tobacco abuse recommend smoking cessation will place on NicoDerm patch Chronic pain continue on Percocet and morphine as needed Hyperkalemia recheck labs in a.m. Renal insufficiency we will recheck labs in a.m. and continue on fluids Probable chronic hypertensive Alcohol abuse continue on multivitamin thiamine and folic acid CIWA NEEDED A.m. labs and pain control Discussed with podiatry DR WALLACE Code Status FULL CODE Discussed Condition With RN AND PT AND ER PHYSICIAN AND DR WALLACE Physician Certification 2 Midnight Certification Type: Admission for Inpatient Services Order for Inpatient Services The services are ordered in accordance with Medicare regulations or non- Medicare payer requirements, as applicable. In the case of services not specified as inpatient-only, they are appropriately provided as inpatient services in accordance with the 2-midnight benchmark. Estimated LOS (days): 2 days is the estimated time the patient will need to remain in the hospital, assuming treatment plan goals are met and no additional complications. Post-Hospital Plan: Not yet determined Jonnathan Nathan DO October 29, 2017 16:14
[2017-10-29] MEDS ORDERED: LORazepam 2 MG TAB PO PRN (16:15)
[2017-10-29] MEDS ORDERED: LORazepam 1 MG TAB PO PRN (16:15)
[2017-10-29] MEDS ORDERED: HALOPERIDOL LACTATE 5 MG/ML AMP IM PRN (16:15)
[2017-10-29] MEDS ORDERED: cloNIDine HCL 0.1 MG TAB PO PRN (16:15)
[2017-10-29] MEDS ORDERED: FLUMAZENIL 0.5 MG/5 ML VIAL IV PUSH PRN (16:15)
[2017-10-29] MEDS ORDERED: LORazepam 2 MG/ML VIAL IV PUSH PRN ×4 (16:15)
[2017-10-29] MEDS: SODIUM CHLOR 0.9% 1000 ML INJ 1,000 ML IV SCH ×2 (17:11→21:49)
[2017-10-29] MEDS: SODIUM CHLORIDE 0.9% FLUSH 10 ML FLUSH IV FLUSH SCH ×2 (17:11→20:30)
[2017-10-29] MEDS: CLINDAMYCIN 600 MG/NS PREMIX 50 ML IV SCH (17:39)
--- NOTE | 2017-10-29 18:37 | MR ---
cc: Nichelle Perrin DPM DATE: 10/29/2017 SURGEON: Nichelle Perrin DPM DRAW HAND: None PREOPERATIVE DIAGNOSIS: Distal phalanx open fracture, with medial and plantar lacerations. POSTOPERATIVE DIAGNOSIS: Distal phalanx open fracture, with medial and plantar lacerations. PROCEDURE PERFORMED: Open fracture debridement and irrigation. ANESTHESIA: General, local infiltrate of 10 mL, 0.5% Marcaine plain infiltrated about the foot. ESTIMATED BLOOD LOSS: 20 mL. MATERIALS: 3-0 Monocryl, 3-0 Prolene. INJECTABLES: None. COMPLICATIONS: None. INDICATIONS FOR PROCEDURE: The patient was working today when a trailer hitch fell on his foot. He proceeded immediately to the ED. He was given appropriate open fracture antibiotics per protocol. The patient reports numbness, tingling and extreme pain to foot. The patient was also noted to have a third metatarsal nondisplaced fracture. DESCRIPTION OF PROCEDURE: The patient was brought back to the operating room and placed on the operating room table in the supine position. General anesthesia was then induced. The foot was then prepped and draped in the usual sterile manner. Tourniquet was placed to patient's calf, however it was not inflated. Attention was then directed to dorsomedial foot as well as plantar medial foot, as well as hallux, where several lacerations and open lesions were noted. Copious irrigation was performed with debridement of all particles and nonviable soft tissue, as well as debris. Distal hallux nail was noted to be loose and unadhered to nail bed. It was removed and there was noted to be exposed bone with fracture fragments. The distal phalanx was debrided. Following 6 liters of copious irrigation with gentamicin, the sites were all closed with 3-0 Monocryl, followed by 3-0 nylon. It was noted that the right hallux had exposed bone. We were able to close soft tissue around the bone. The foot was dressed with Xeroform, 4 x 4's, cast padding, Nikita. All fractures to right foot were nonoperative. The patient tolerated procedure and anesthesia well. He was transferred from the OR to PACU with vital signs stable and neurovascular status intact to the right foot. We will monitor the right hallux for any signs of osteomyelitis, as well as any signs of inflow vascular disease, as he is a smoker and had nonpalpable pulses. We will obtain ABIs and vascular consult, if necessary. LORENZA Guy/Frances , 05:09 PM , 05:50 PM
[2017-10-29 20:00] VITALS: BP 125/67; PULSE 95; RESP 18; TEMP 98.2; O2SAT 95
[2017-10-29] MEDS: DOCUSATE SODIUM 50 MG/SENNA 8.6 MG TAB PO SCH (20:30)
[2017-10-29] MEDS ORDERED: SODIUM CHLORIDE 0.9% FLUSH 10 ML FLUSH IV FLUSH SCH (21:00)
[2017-10-29] MEDS: GENTAMICIN INJ 80 MG in SODIUM CHLORIDE 0.9% INJ 100 ML IV SCH (21:58)
[2017-10-29] MEDS: MORPHINE SULFATE 4 MG/ML INJ IV PUSH PRN (21:58)
[2017-10-29 22:41] VITALS: PULSE 94
[2017-10-29] MEDS: oxyCODONE/ACETAMINOPHEN 10 MG/325 MG TAB PO PRN (23:32)
[2017-10-30] VITALS (9 sets, daily range): BP systolic 117–151; BP diastolic 63–74; PULSE 70–95; RESP 18–20; TEMP 97.8–99.1; O2SAT 92–96
[2017-10-30] MEDS: CLINDAMYCIN 600 MG/NS PREMIX 50 ML IV SCH ×3 (01:21→16:03)
[2017-10-30] MEDS: SODIUM CHLOR 0.9% 1000 ML INJ 1,000 ML IV SCH ×3 (03:25→16:03)
[2017-10-30] MEDS: ENOXAPARIN SODIUM 30 MG/0.3 ML SYRINGE SQ SCH (03:26)
[2017-10-30] MEDS: MORPHINE SULFATE 4 MG/ML INJ IV PUSH PRN ×3 (03:28→14:05)
[2017-10-30] MEDS: GENTAMICIN INJ 80 MG in SODIUM CHLORIDE 0.9% INJ 100 ML IV SCH ×3 (05:41→22:07)
[2017-10-30] MEDS: oxyCODONE/ACETAMINOPHEN 10 MG/325 MG TAB PO PRN ×3 (05:41→18:09)
[2017-10-30 07:10] LABS: AUTOMATED NEUTROPHIL # 10.3 TH/MM3 (1.8-7.7); BASOPHIL % 0.4 % (0.0-2.0); EOSINOPHIL % 0.1 % (0.0-4.0); HEMATOCRIT 42.2 % (39.0-51.0); HEMOGLOBIN 14.2 GM/DL (13.0-17.0); LYMPH % 13.3 % (9.0-44.0); LYMPHOCYTE # 1.7 TH/MM3 (1.0-4.8); MEAN CELL VOLUME 95.4 FL (80.0-100.0); MEAN CORPUSCULAR HEMOGLOBIN 32.2 PG (27.0-34.0); MEAN CORPUSCULAR HGB CONC 33.8 % (32.0-36.0); MEAN PLATELET VOLUME 8.4 FL (7.0-11.0); MONOCYTE # 1.1 TH/MM3 (0-0.9); NEUT % 78.2 % (16.0-70.0); PLATELET COUNT 183 TH/MM3 (150-450); RED BLOOD COUNT 4.42 MIL/MM3 (4.50-5.90); RED CELL DISTRIBUTION WIDTH 13.7 % (11.6-17.2); WHITE BLOOD COUNT 13.2 TH/MM3 (4.0-11.0)
[2017-10-30 07:47] LABS: ALBUMIN 3.3 GM/DL (3.4-5.0); ALKALINE PHOSPHATASE 76 U/L (45-117); ALT (GPT) 21 U/L (12-78); AST (GOT) 21 U/L (15-37); BLOOD UREA NITROGEN 16 MG/DL (7-18); CALCIUM 8.7 MG/DL (8.5-10.1); CHLORIDE 107 MEQ/L (98-107); CREATININE 1.28 MG/DL (0.60-1.30); FREE T4 1.13 NG/DL (0.76-1.46); GLOMERULAR FILTRATION RATE 58 ML/MIN (>89); GLUCOSE,RANDOM 124 MG/DL (74-106); MAGNESIUM 2.1 MG/DL (1.5-2.5); PHOSPHORUS 2.8 MG/DL (2.5-4.9); SODIUM (NA) 139 MEQ/L (136-145); TOTAL BILIRUBIN ADULT 0.2 MG/DL (0.2-1.0); TOTAL PROTEIN 6.9 GM/DL (6.4-8.2)
[2017-10-30] MEDS ORDERED: FOLIC ACID 1 MG TAB PO SCH (09:00)
[2017-10-30] MEDS ORDERED: PANTOPRAZOLE SOD 40 MG DELAYED RELEASE TAB PO SCH (09:00)
[2017-10-30] MEDS ORDERED: REMOVE OLD PATCH T-DERMAL SCH (09:00)
[2017-10-30] MEDS ORDERED: NICOTINE 21 MG/24 HR PATCH T-DERMAL SCH (09:00)
[2017-10-30] MEDS ORDERED: THIAMINE HCL 100 MG TAB PO SCH (09:00)
[2017-10-30] MEDS ORDERED: MULTIVITAMINS/MINERALS THERAPEUTIC TAB PO SCH (09:00)
[2017-10-30] MEDS: SODIUM CHLORIDE 0.9% FLUSH 10 ML FLUSH IV FLUSH SCH ×2 (09:33→21:00)
[2017-10-30] MEDS: DOCUSATE SODIUM 50 MG/SENNA 8.6 MG TAB PO SCH ×2 (09:33→21:27)
--- NOTE | 2017-10-30 09:53 | HHI.PR ---
Subjective Remarks Patient states that he wants to be discharged home today. He is from out of town and is ready to be discharged. No other complaints at this time. Overall his pain is controlled. Objective Vitals Vital Signs Date Time Temp Pulse Resp B/P (MAP) Pulse Ox O2 Delivery O2 Flow Rate FiO2 10/30/17 04:15 71 10/30/17 04:00 98.2 70 20 120/63 (82) 95 10/30/17 00:05 79 10/30/17 00:00 99.1 93 20 124/63 (83) 95 10/29/17 22:41 94 10/29/17 20:00 98.2 95 18 125/67 (86) 95 10/29/17 19:28 97.7 90 14 130/79 (96) 98 Nasal Cannula 2 10/29/17 19:00 79 15 118/72 (87) 99 Nasal Cannula 2 10/29/17 18:00 64 13 112/71 (85) 98 Nasal Cannula 2 10/29/17 17:00 83 18 110/62 (78) 98 Nasal Cannula 2 10/29/17 16:30 69 12 113/59 (77) 98 Nasal Cannula 2 10/29/17 16:00 73 12 116/67 (83) 98 Nasal Cannula 2 10/29/17 15:45 72 14 122/68 (86) 98 Nasal Cannula 2 10/29/17 15:30 83 19 136/80 (98) 98 Nasal Cannula 2 10/29/17 15:15 87 13 169/84 (112) 98 Nasal Cannula 2 10/29/17 15:07 97.7 79 10 179/101 (127) 100 Simple Mask 6 10/29/17 12:37 95 16 170/113 (132) 96 10/29/17 11:05 99 18 176/110 (132) 95 Room Air 10/29/17 10:57 98.6 I/O 10/29/17 10/29/17 10/29/17 10/30/17 10/30/17 10/30/17 07:00 15:00 23:00 07:00 15:00 23:00 Intake Total 1250 ml 620 ml 1766 ml Output Total 20 ml 1100 ml Balance 1230 ml 620 ml 666 ml Intake Oral 50 ml 720 ml IV Total 50 ml 570 ml 1046 ml Other 1200 ml Output Urine Total 1100 ml Estimated Blood Loss 20 ml Result Diagram: 10/30/17 0635 10/30/17 0635 Objective Remarks GENERAL: This is a well-nourished, well-developed patient, in no apparent distress. CARDIOVASCULAR: Regular rate and rhythm RESPIRATORY: Clear to auscultation. Breath sounds equal bilaterally. No wheezes , rales, or rhonchi. MUSCULOSKELETAL: Extremities without clubbing, cyanosis, or edema. Right foot bandage clean dry and intact NEURO: Alert & Oriented x4 to person, place, time, situation. Moves all ext x4 A/P Assessment and Plan Laceration and open fracture and crush injury of the right great toe status post marisela falling on sustaining a Open fracture right foot, distal phalanx of hallux status postoperative day #1 right foot open fracture debridement and irrigation with laceration repair with podiatry -continue postoperative care, pain control, nonweightbearing and physical therapy. Had been on IV Ancef, Clinda and gent for open fracture -we will transition to p.o. Keflex upon discharge. Tobacco abuse recommend smoking cessation will place on NicoDerm patch Chronic pain continue on Percocet and morphine as needed Hyperkalemia -resolved Renal insufficiency with probable chronic kidney disease stage III-improved on IV fluids Elevated blood pressure on admission likely due to pain as blood pressure has improved during hospitalization after first surgical intervention. Discharge Planning Discharge patient to home when cleared by podiatry Condition on discharge: Improved Regular Diet as tolerated Nonweightbearing right foot Rx written: Percocet as needed for pain, stop patient's home [place] while Percocet. Keflex 500 mg p.o. 3 times daily for 7 days Follow-up with primary care physician Follow-up with podiatry in [place] Nissa Scruggs MD October 30, 2017 09:53
[2017-10-30] MEDS ORDERED: OXYC1TAB63 PO (10:00)
--- NOTE | 2017-10-30 10:01 | HHI.DCPOC ---
Discharge Care Plan Diagnosis: (1) Open fracture Goals to Promote Your Health * To prevent worsening of your condition and complications * To maintain your health at the optimal level Directions to Meet Your Goals Take your medications as prescribed Follow your dietary instruction Follow activity as directed Keep your appointments as scheduled Take your immunizations and boosters as scheduled If your symptoms worsen call your PCP, if no PCP go to Urgent Care Center or Emergency Room Smoking is Dangerous to Your Health. Avoid second hand smoke Call the 24-hour hour crisis hotline for domestic abuse at Nissa Scruggs MD October 30, 2017 10:01
[2017-10-30] MEDS ORDERED: CEPH-460 PO (10:02)
[2017-10-30] MEDS ORDERED: WALKER WHEELS/F1 MIS (13:44)
[2017-10-30 15:04] LABS: HEMOGLOBIN A1C 5.7 % (4.3-6.0)
--- NOTE | 2017-10-30 18:07 | EKG ---
Date Performed: 10/29/2017 Time Performed: 13:06:12 PTAGE: 57 years EKG: Sinus rhythm NORMAL ECG NO PREVIOUS TRACING DOCTOR: Jasmina Silva Interpretating Date/Time 10/30/2017 17:59:48
--- NOTE | 2017-10-30 20:40 | HHI.PR ---
Subjective Remarks Patient seen bedside this evening. Reports numbness in the right foot. States pain is well controlled. Patient states he does not like posterior splint Objective Vital Signs Date Time Temp Pulse Resp B/P (MAP) Pulse Ox O2 Delivery O2 Flow Rate FiO2 10/30/17 20:27 18 10/30/17 20:00 97.8 95 18 135/70 (91) 96 10/30/17 12:00 98.0 76 18 117/70 (86) 96 10/30/17 10:25 94 21 10/30/17 08:06 83 10/30/17 08:00 98.4 91 18 122/74 (90) 96 10/30/17 04:15 71 10/30/17 04:00 98.2 70 20 120/63 (82) 95 10/30/17 00:05 79 10/30/17 00:00 99.1 93 20 124/63 (83) 95 10/29/17 22:41 94 I/O 10/29/17 10/29/17 10/29/17 10/30/17 10/30/17 10/30/17 07:00 15:00 23:00 07:00 15:00 23:00 Intake Total 1250 ml 620 ml 1766 ml 252 ml 1750 ml Output Total 20 ml 1100 ml 800 ml 1400 ml Balance 1230 ml 620 ml 666 ml -548 ml 350 ml Intake Oral 50 ml 720 ml 700 ml IV Total 50 ml 570 ml 1046 ml 252 ml 1050 ml Other 1200 ml Output Urine Total 1100 ml 800 ml 1400 ml Estimated Blood Loss 20 ml Result Diagram: 10/30/17 0635 10/30/17 0635 Imaging Last Impressions Foot X-Ray 10/29/17 0000 Signed Impressions: CONCLUSION: 1. Fluoroscopic evaluation of the right foot, as above. Procedures Status post right foot debridement and irrigation secondary to open fracture and laceration Objective Remarks Right foot with sutures intact and skin well coapted to dorsal and plantar aspect, right hallux with no bone exposed. Plantar aspect of foot with ecchymosis extending from plantar hallux to first and second metatarsal head. Delayed capillary refill time to right hallux when compared to other digits however capillary refill time still present. Medications and IVs Current Medications Medications (Trade) Dose Ordered Sig/Asaf Route Start Time Stop Time Status Last Admin Sodium Chloride 1,000 ml @ 100 mls/hr Q10H IV 10/29/17 11:49 10/30/17 16:03 (NS Flush) 2 ml UNSCH PRN IV FLUSH 10/29/17 12:00 (NS Flush) 2 ml BID IV FLUSH 10/29/17 12:00 10/29/17 17:11 (Tylenol) 650 mg Q4H PRN PO 10/29/17 12:00 (Zofran Odt) 4 mg Q6H PRN PO 10/29/17 12:00 (Reglan Inj) 5 mg Q6H PRN IV PUSH 10/29/17 12:00 (Tylenol) 650 mg Q6H PRN PO 10/29/17 12:00 (Percocet 5-325 Mg) 1 tab Q6H PRN PO 10/29/17 12:00 (Percocet 10-325 Mg) 1 tab Q6H PRN PO 10/29/17 12:00 10/30/17 18:09 (Morphine Inj) 2 mg Q3H PRN IV PUSH 10/29/17 12:00 (Morphine Inj) 4 mg Q3H PRN IV PUSH 10/29/17 12:00 (Morphine Inj) 4 mg Q3H PRN IV PUSH 10/29/17 12:00 10/30/17 14:05 (Narcan Inj) 0.4 mg UNSCH PRN IV PUSH 10/29/17 12:00 (Shanita-Colace) 1 tab BID PO 10/29/17 21:00 10/30/17 09:33 (Milk Of Magnesia Liq) 30 ml Q12H PRN PO 10/29/17 12:00 (Senokot) 17.2 mg Q12H PRN PO 10/29/17 12:00 (Dulcolax Supp) 10 mg DAILY PRN RECTAL 10/29/17 12:00 (Lactulose Liq) 30 ml DAILY PRN PO 10/29/17 12:00 Miscellaneous Information 1 DAILY T-DERMAL 10/30/17 09:00 10/30/17 09:57 (Habitrol 21 Mg Patch.24 Hr) 1 patch DAILY T-DERMAL 10/30/17 09:00 10/30/17 09:33 Lactated Ringer's 1,000 ml @ 30 mls/hr Q24H PRN IV 10/29/17 13:15 11/01/17 13:14 Sodium Chloride 500 ml @ 30 mls/hr [id number] PRN IV 10/29/17 13:15 11/01/17 13:14 (Lopressor) 25 mg TESTING MACHINE OPERATOR PRN PO 10/29/17 13:15 11/01/17 13:14 (Betadine 5% Antisepsis Kit) 1 applic TESTING MACHINE OPERATOR PRN EACH NARE 10/29/17 13:15 11/01/17 13:14 (Chlorhexidine 2% Cloth) 3 pack TESTING MACHINE OPERATOR PRN TOPICAL 10/29/17 13:15 11/01/17 13:14 (NovoLIN R INJ) See Protocol Table ... TESTING MACHINE OPERATOR PRN SQ 10/29/17 13:15 11/01/17 13:14 (Lovenox Inj) 30 mg Q24H SQ 10/30/17 03:00 10/30/17 03:26 Cefazolin Sodium 1000 mg/Sodium Chloride 100 ml @ 200 mls/hr Q8H IV 10/29/17 20:00 10/30/17 12:02 Clindamycin/ Sodium Chloride 50 ml @ 100 mls/hr Q8H IV 10/29/17 17:00 10/30/17 16:03 Gentamicin Sulfate 80 mg/ Sodium Chloride 102 ml @ 204 mls/hr Q8H IV 10/29/17 22:00 10/30/17 14:04 (Benadryl) 25 mg Q6H PRN PO 10/29/17 15:15 10/29/17 23:35 (Folate) 1 mg DAILY PO 10/30/17 09:00 11/04/17 08:59 10/30/17 09:33 (Vitamin B1) 100 mg DAILY PO 10/30/17 09:00 10/30/17 09:31 (Theragran M Tab) 1 tab DAILY PO 10/30/17 09:00 11/04/17 08:59 10/30/17 09:33 (Protonix) 40 mg DAILY PO 10/30/17 09:00 10/30/17 09:33 (Catapres) 0.1 mg Q6H PRN PO 10/29/17 16:15 (Romazicon Inj) 0.2 mg Q1M PRN IV PUSH 10/29/17 16:15 (Ativan) 1 mg Q4H PRN PO 10/29/17 16:15 (Ativan Inj) 1 mg Q4H PRN IV PUSH 10/29/17 16:15 (Ativan) 2 mg Q2H PRN PO 10/29/17 16:15 (Ativan Inj) 2 mg Q2H PRN IV PUSH 10/29/17 16:15 (Ativan Inj) 2 mg Q1H PRN IV PUSH 10/29/17 16:15 (Ativan Inj) 2 mg Q15M PRN IV PUSH 10/29/17 16:15 (Haldol Inj) 2 mg Q15M PRN IM 10/29/17 16:15 Assessment and Plan Assessment and Plan 57-year-old male with right foot open distal phalanx comminuted fracture with laceration Patient examined and evaluated with all questions answered ABIs to be performed this patient has no palpable DP pulse and has a history of smoking, and is a current smoker Delayed capillary refill time to right hallux although capillary refill still present If ABIs are normal okay to DC per podiatry Patient has received appropriate open fracture antibiotic protocol Okay to DC with pain medication and oral antibiotics Patient is to remain nonweightbearing to right foot Patient is to keep dressing clean dry and intact with posterior splint He is to follow-up with podiatry in [place], he states he already has an appointment with specialists Nichelle Perrin DPM October 30, 2017 20:40
[2017-10-31 00:01] VITALS: BP 130/61; PULSE 82; RESP 18; TEMP 97.6; O2SAT 97
[2017-10-31] MEDS: oxyCODONE/ACETAMINOPHEN 10 MG/325 MG TAB PO PRN (01:15)
[2017-10-31] MEDS: CLINDAMYCIN 600 MG/NS PREMIX 50 ML IV SCH (01:15)
[2017-10-31 02:24] VITALS: RESP 18
[2017-10-31] MEDS: SODIUM CHLOR 0.9% 1000 ML INJ 1,000 ML IV SCH (03:14)
[2017-10-31] MEDS: ENOXAPARIN SODIUM 30 MG/0.3 ML SYRINGE SQ SCH (03:14)
--- NOTE | 2017-10-31 07:00 | RADRPT ---
EXAM DATE: 10/30/2017 9:39 PM EDT AGE/SEX: 57 years / Male INDICATIONS: Complex fracture of right great toe CLINICAL DATA: This is the patient's initial encounter. Patient reports that signs and symptoms have been present for 2 days and indicates a pain score of 9/10. MEDICAL/SURGICAL HISTORY: . Chronic Back Pain . Left Calf Skin Graft COMPARISON: No prior [facility] exams available for comparison. TECHNIQUE: Four-cuff ankle and brachial pressures were obtained. Pulse cuff waveform tracings of the ankles were recorded, and ankle-brachial indices were calculated. PRESSURES (mmHg): Brachial (arm) : RIGHT: 128, LEFT: IV SITE Ankle : RIGHT: 126, LEFT: 111 SHEREE : RIGHT: 0.98, LEFT: 0.87 TBI : RIGHT: 0.58, LEFT: 0.69 . CONCLUSION: 1. The right SHEREE is within normal limits. The left SHEREE is mildly diminished. 2. The TBIs are moderately diminished bilaterally. Electronically signed by: Jesus Duffy MD 10/31/2017 6:59 AM EDT
== END 2017-10-31 04:38 | disposition home or self-care (01) | DRG 517 ==
LOC: HOR 10:50 → NEDA 11:44 → N06B 19:33
PROVIDERS: ADMIT Family Medicine; ATTEND Family Medicine
PROC: 0HDRXZZ Extraction of Toe Nail, External Approach (ICD-10-PCS; 2017-10-29)
PROC: 0QBQ0ZZ Excision of Right Toe Phalanx, Open Approach (ICD-10-PCS; principal; 2017-10-29 13:13)
DX: S92.421A Displaced fracture of distal phalanx of right great toe, initial encounter for closed fracture (principal); E87.5 Hyperkalemia; N18.3 Chronic kidney disease, stage 3 (moderate); S91.201A Unspecified open wound of right great toe with damage to nail, initial encounter; S91.311A Laceration without foreign body, right foot, initial encounter; S97.111A Crushing injury of right great toe, initial encounter; F17.210 Nicotine dependence, cigarettes, uncomplicated; W20.8XXA Other cause of strike by thrown, projected or falling object, initial encounter; G89.29 Other chronic pain; M54.9 Dorsalgia, unspecified; R03.0 Elevated blood-pressure reading, without diagnosis of hypertension; S92.334A Nondisplaced fracture of third metatarsal bone, right foot, initial encounter for closed fracture
CPT/HCPCS: 73630; 76000; 80053; 83036; 83735; 84100; 84439; 84443; 85025; 85610; 85730; 90471; 90714; 93005; 93922; 94150; 96365; 96375; J0131; J0690; J1100; J1170; J1580; J1650; J2175; J2250; J2270; J2370; J2405; J3370; J7030; J7120